=== PATIENT | female | born 1980 | race Caucasian/White ===

== ENCOUNTER 2016-09-08 07:12 | Emergency (ER) | payer OTHER, MEDICAID ==
[2016-09-08 07:30] VITALS: BP 114/74
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
== END 2016-09-08 10:14 | disposition home or self-care (01) ==
LOC: JP.ED 07:12
DX: T74.21XA Adult sexual abuse, confirmed, initial encounter (principal); F17.210 Nicotine dependence, cigarettes, uncomplicated; Z98.890 Other specified postprocedural states; Z90.89 Acquired absence of other organs; Z79.899 Other long term (current) drug therapy; Z88.1 Allergy status to other antibiotic agents
CPT/HCPCS: 99285

== ENCOUNTER 2016-10-19 06:16 | Day surgery (SDC) | payer MEDICAID ==
[2016-10-19] MEDS ORDERED: Lactated Ringers 1,000 ML IV SCH (07:00)
[2016-10-19] MEDS ORDERED: Lidocaine 1% with EPINEPHrine 1:100,000 50 ML MDV ONE (07:10)
[2016-10-19] MEDS ORDERED: Bupivacaine 0.5% 50 ML MDV ONE (07:10)
[2016-10-19] MEDS ORDERED: fentaNYL 250 MCG/5 ML SDV ONE (07:15)
[2016-10-19] MEDS ORDERED: Neostigmine Methylsulfate 1 MG/ML 5 ML Syringe ONE (07:15)
[2016-10-19] MEDS ORDERED: Succinylcholine/Normal Saline 200 MG/10 ML Syringe ONE (07:15)
[2016-10-19] MEDS ORDERED: Rocuronium 50 MG/5 ML Vial ONE (07:15)
[2016-10-19] MEDS ORDERED: Propofol 200 MG/20 ML SDV ONE (07:15)
[2016-10-19] MEDS ORDERED: Dexamethasone 4 MG/ML SDV ONE (07:15)
[2016-10-19] MEDS ORDERED: Ondansetron 4 MG/2 ML SDV ONE (07:15)
[2016-10-19] MEDS ORDERED: Levofloxacin/Dextrose 5%-Water 500 MG in Premix Bag 1 BAG IV ONE (07:30)
[2016-10-19] MEDS ORDERED: metroNIDAZOLE/Normal Saline 500 MG in Premix Bag 1 BAG IV ONE (07:36)
[2016-10-19] MEDS ORDERED: Polyethylene Glycol 3350 Powder 17 GM Packet PO PRN (07:50)
[2016-10-19] MEDS ORDERED: Docusate Sodium 100 MG Cap PO PRN (07:50)
[2016-10-19] MEDS ORDERED: Bisacodyl 5 MG Tab PO PRN (07:50)
[2016-10-19] MEDS ORDERED: Benzocaine/Cetylpyridinium/Menthol Lozenge MUCMEM PRN (07:50)
[2016-10-19] MEDS ORDERED: Acetaminophen/HYDROcodone 325-10 MG Tab PO PRN (07:50)
[2016-10-19] MEDS ORDERED: Zolpidem 5 MG Tab PO PRN (07:50)
[2016-10-19] MEDS ORDERED: Sodium Chloride 0.9% 1,000 ML IV SCH (08:00)
[2016-10-19] MEDS ORDERED: Ondansetron 4 MG/2 ML SDV IVPUSH PRN (13:05)
[2016-10-19] MEDS ORDERED: Ketorolac 60 MG/2 ML SDV ONE (13:11)
[2016-10-19] MEDS ORDERED: Scopolamine 1.5 MG Transdermal Patch TRDERM PRN (13:42)
[2016-10-19] MEDS: risperiDONE 1 MG Tab PO SCH ×2 (17:03→21:30)
[2016-10-19] MEDS ORDERED: Mirtazapine 15 MG Tab PO SCH (21:00)
--- NOTE | 2016-10-19 21:21 | CONS ---
DATE OF SERVICE: 10/19/2016 REFERRING PHYSICIAN: CONSULTING PHYSICIAN: Caio Tang MD REASON FOR CONSULTATION: Abdominal pain. HISTORY OF PRESENT ILLNESS: This is a 36-year-old female with a 3-day history of worsening abdominal pain. There is associated some nausea. No vomiting, shortness of breath, or chest pain. This is in the right upper quadrant. The patient is having normal bowel movements. PAST MEDICAL HISTORY: PTSD, schizoaffective disorder, asthma, depression, smoking history. ALLERGIES: AMOXICILLIN, PENICILLIN, DIPHENHYDRAMINE, SUDAFED, ZITHROMAX, ENVIRONMENTAL. SOCIAL HISTORY: She lives in a jail. She is a smoker. REVIEW OF SYSTEMS: GENERAL: Stable for her condition. HEENT: No symptoms. CARDIOVASCULAR: No history of myocardial infarction. RESPIRATORY: No shortness of breath. PSYCH: Stable. NEUROLOGICAL: No symptoms. The remainder review of systems reviewed and is negative. PHYSICAL EXAMINATION: VITAL SIGNS: Stable. GENERAL: The patient is appropriate for her condition. HEENT: Pupils equal, round, and reactive to light. NECK: Supple, nontender. CARDIOVASCULAR: Regular rate. RESPIRATORY: Lungs clear to consultation bilaterally. ABDOMEN: Bowel sounds are positive. Pain with palpation right upper quadrant. EXTREMITIES: Full range of motion. Strength 5/5. LABORATORY DATA: White blood cell count is 13.7, hemoglobin 15.3. Comprehensive metabolic panel is normal. IMAGING DATA: I did review the ultrasound,which shows cholelithiasis and cholecystitis. PLAN: The patient will be taken to the operating room for laparoscopic cholecystectomy. We discussed risks, benefits, alternatives, and limitations, including, but not limited to infection, bleeding, and perforation of the intestinal structures. We also discussed common bile duct injuries and other risks including cystic duct leaks and bleeding liver bed. The patient understands these risks and wishes to proceed. NATHANIEL Judd /[id number]
[2016-10-20 07:20] VITALS: BP 113/63
[2016-10-20] MEDS ORDERED: Ondansetron 4 MG Tab.DIS PO PRN (07:51)
[2016-10-20] MEDS: risperiDONE 1 MG Tab PO SCH (08:48)
--- NOTE | 2016-10-20 09:58 | OR ---
DATE OF PROCEDURE: 10/19/2016 PROCEDURE: Laparoscopic cholecystectomy. PREOPERATIVE DIAGNOSIS: Cholelithiasis with cholecystitis, acute and chronic. POSTOPERATIVE DIAGNOSIS: Cholelithiasis with cholecystitis, acute and chronic. COMPLICATIONS: None. 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 ANESTHESIA: General/local. INDICATIONS: This is a pleasant 36-year-old female with right upper quadrant abdominal pain and subsequently diagnosed. A diagnosis was verified by ultrasound and was noted to have cholelithiasis with cholecystitis. Risks, benefits, alternatives, limitations including, but not limited to infection, bleeding, and common bile duct injury, along with injury to abdominal structures such as blood vessels, intestines, and others were explained to the patient, and she wished to proceed. PROCEDURE IN DETAIL: The patient was placed in supine position. A supraumbilical curvilinear incision was made. A Veress needle was used and a drop test was performed without abnormality. The abdomen was subsequently insufflated. This was followed by an Optiview trocar. An additional 10 mm and two 5 mm ports were entered under direct visualization. The gallbladder was retracted cephalad. The infundibulum was retracted inferolaterally. Using blunt dissection, a "clear view" of the gallbladder was performed with a single pulsatile structure in the gallbladder and a single nonpulsatile structure in the gallbladder. The duct and its associated artery were subsequently clipped x3, and then transected. The remaining 1/3rd of the gallbladder was removed off the gallbladder bed without abnormality. Minimal bleeding was controlled by electrocautery. The gallbladder was delivered via bag through the upper port. A muscle spreading technique was also used to facilitate gallbladder extraction. The gallbladder fossa and associated clipped structures were then re-evaluated. There was no bleeding. No bile leak. No other abnormalities. Approximately 500 mL of fluid was used to irrigate this area and subsequently removed. The air was removed. The wound was closed with 3-0 Vicryl and 4-0 Vicryl interrupted in running fashion after being thoroughly irrigated and anesthetized with lidocaine, and Dermabond was applied. The patient tolerated the procedure well. Caio Tang MD /[id number]
--- NOTE | 2016-10-20 10:29 | PN ---
DATE OF SERVICE: 10/20/2016 SUBJECTIVE: The patient is doing well today. Nausea has abated. No vomiting, shortness of breath, or chest pain. OBJECTIVE: VITAL SIGNS: Stable. CARDIOVASCULAR: Regular rhythm and rate. RESPIRATORY: Lungs are clear to auscultation bilaterally. ABDOMEN: Bowel sounds are positive. Incisions are healing well. ASSESSMENT: Status post laparoscopic cholecystectomy. PLAN: The patient will be discharged today. Please see discharge instructions for further details. Caio Tang MD /[id number]
--- NOTE | 2016-10-20 10:31 | DISCH ---
DISCHARGE DIAGNOSIS: Status post laparoscopic cholecystectomy. ADDITIONAL DIAGNOSIS: Please see History and Physical. HOSPITAL COURSE: This is a pleasant 36-year-old female, who underwent a laparoscopic cholecystectomy for cholecystitis/cholelithiasis. The patient recovered from surgery well. She remained overnight due to nausea which is completely gone at this point. Laboratory results are nominal. There is no evidence of bilirubin elevation. FOLLOWUP: Follow up with Surgery in 7 to 14 days. ACTIVITY: No lifting 30 pounds x30 days. DISCHARGE MEDICATIONS: Please see MAR, but include oxycodone for pain and Zofran for potential nausea. COMPLICATIONS: During this hospitalization are none. Additional physician referrals during this hospitalization, none.
== END 2016-10-20 09:27 | disposition home or self-care (01) ==
LOC: JP.SDS 06:16 → JP.2SS 09:55 → JP.SDS 10-20 09:27
PROVIDERS: ATTEND Surgery
DX: K80.10 Calculus of gallbladder with chronic cholecystitis without obstruction (principal); J45.909 Unspecified asthma, uncomplicated; F32.9 Major depressive disorder, single episode, unspecified; Z88.0 Allergy status to penicillin; Z88.1 Allergy status to other antibiotic agents; Z88.8 Allergy status to other drugs, medicaments and biological substances; Z91.09 Other allergy status, other than to drugs and biological substances; Z79.899 Other long term (current) drug therapy; F17.200 Nicotine dependence, unspecified, uncomplicated
CPT/HCPCS: 36415; 47562; 80053; 85025; A9270; J1100; J1885; J1956; J2405; J2704; J3010; J7040; J7120; 88304

== ENCOUNTER 2016-11-05 19:35 | Emergency (ER) | payer MEDICAID ==
[2016-11-05 19:50] VITALS: BP 110/66
[2016-11-05] MEDS ORDERED: Bacitracin Oint 1 GM U/D Packet TOP ONE (20:12)
--- NOTE | 2016-11-05 20:15 | EDM.PDOC ---
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 Is tender today with redness. Pt unsure of last tetanus. Onset: Sudden Onset Date: 11/04/16 Location: Reports: Upper Extremity, Left Quality: Reports: Ache Severity: Mild Improves with: Reports: None Worsens with: Reports: None Context: Reports: Activity Associated Symptoms: Reports: No Other Symptoms - Related Data Allergies Allergy/AdvReac Type Severity Reaction Status Date / Time amoxicillin Allergy Severe Difficulty Verified 11/05/16 19:52 Breathing Penicillins Allergy Severe Difficulty Verified 11/05/16 19:52 Breathing azithromycin [From Zithromax] Allergy Hives Verified 11/05/16 19:52 diphenhydramine HCl Allergy Hives Verified 11/05/16 19:52 [From Benadryl] pseudoephedrine Allergy Cannot Verified 11/05/16 19:52 [From Sudafed] Remember environmental Allergy Itching Uncoded 11/05/16 19:52 Home Meds: Home Meds risperiDONE 1 mg PO BID 09/08/16 [History] Albuterol [IJD: Albuterol HFA] 2 puff INH Q4H PRN 10/18/16 [History] Albuterol [Proventil Neb Soln] 3 ml NEB Q6H PRN 10/18/16 [History] Ibuprofen [Motrin] 800 mg PO Q8H PRN 10/18/16 [History] Mirtazapine [Remeron] 15 mg PO BEDTIME 10/18/16 [History] Ondansetron [Zofran ODT] 4 mg PO Q4H PRN #30 tab.dis 10/20/16 [Rx] oxyCODONE 5 mg PO Q4H PRN #30 tablet 10/20/16 [Rx] Past Medical History HEENT History: Reports: Impaired Vision Other HEENT History: HEADACHE Respiratory History: Reports: Asthma Gastrointestinal History: Reports: Cholelithiasis Genitourinary History: Reports: Renal Calculus 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: Musculoskeletal History: Reports: Fracture Neurological History: Reports: Concussion, Headaches, Chronic Psychiatric History: Reports: Addiction, Anxiety, Depression, Panic Attack, PTSD Oncologic (Cancer) History: Reports: Cervix - Past Surgical History HEENT Surgical History: Reports: Adenoidectomy, Tonsillectomy Female Surgical History: Reports: Tubal Ligation Neurological Surgical History: Reports: Scoliosis Social & Family History - Tobacco Use Smoking Status *Q: Current Every Day Smoker Years of Tobacco use: 20 Packs/Tins Daily: 0.5 Used Tobacco, but Quit: No Month Tobacco Last Used: MARCH Second Hand Smoke Exposure: Yes - Caffeine Use Caffeine Use: Reports: Soda - Alcohol Use Days Per Week of Alcohol Use: 0 - Recreational Drug Use Recreational Drug Use: No Drug Use in Last 12 Months: No Recreational Drug Type: Reports: Marijuana/Hashish Recreational Drug Use Frequency: Not Used In Over 6 Months Review of Systems - Review of Systems Review Of Systems: See Below Constitutional: Reports: No Symptoms Ears: Reports: No Symptoms Nose: Reports: No Symptoms Mouth/Throat: Reports: No Symptoms Respiratory: Reports: No Symptoms Cardiovascular: Reports: No Symptoms Musculoskeletal: Reports: Hand Pain (left index finger) Skin: Reports: Change in Color (left index finger tip red and swollen) ED EXAM, GENERAL - Physical Exam Exam: See Below Exam Limited By: No Limitations General Appearance: Alert, WD/WN, No Apparent Distress Respiratory/Chest: No Respiratory Distress, Lungs Clear, Normal Breath Sounds, No Accessory Muscle Use, Chest Non-Tender Cardiovascular: Normal Peripheral Pulses, Regular Rate, Rhythm, No Edema, No Gallop, No JVD, No Murmur, No Rub Extremities: Redness (left index finger near the nailbed with redness, mild swelling and tenderness. No obvious foreign body palpated.) Neurological: Alert, Oriented, CN II-XII Intact, Normal Cognition, Normal Gait, Normal Reflexes, No Motor/Sensory Deficits Skin Exam: Other Lymphatic: No Adenopathy Course - Vital Signs Last Recorded V/S: Last Vital Signs Temp 97.6 F 11/05/16 19:49 Pulse 86 11/05/16 19:49 Resp 16 11/05/16 19:49 BP 110/66 11/05/16 19:49 Pulse Ox 92 L 11/05/16 19:49 - Orders/Labs/Meds Meds: Medications Discontinued Medications Generic Name Dose Route Start Last Admin Trade Name Darin PRN Reason Stop Dose Admin Bacitracin 1 dose 11/05/16 20:12 Bacitracin Oint 1 Gm TOP 11/05/16 20:13 ONETIME ONE Departure - Departure Time of Disposition: 20:17 Disposition: Home, Self-Care 01 Condition: good Clinical Impression: Cellulitis of left index finger - Discharge Information Referrals: PCP,None [Primary Care Provider] - Forms: ED Department Discharge Additional Instructions: Hand soaked in Hibiclens. Dressed with bacitracin and bandaide. Pt is to soak daily in Epsom salt. Rx for Cephalexin 500mg three times a day for 7 days given. Followup if worsening. Tetanus status addressed. Current as of 2014. - Problem List Review Problem List Initiated/Reviewed/Updated: Yes
== END 2016-11-05 20:44 | disposition home or self-care (01) ==
LOC: JP.ED 19:35
DX: L03.012 Cellulitis of left finger (principal); J45.909 Unspecified asthma, uncomplicated; F41.9 Anxiety disorder, unspecified; F17.210 Nicotine dependence, cigarettes, uncomplicated; F32.9 Major depressive disorder, single episode, unspecified; Z98.890 Other specified postprocedural states; Z98.51 Tubal ligation status; Z79.899 Other long term (current) drug therapy; Z88.1 Allergy status to other antibiotic agents; Z88.0 Allergy status to penicillin; Z88.8 Allergy status to other drugs, medicaments and biological substances
CPT/HCPCS: 99283

== ENCOUNTER 2017-01-17 11:54 | Emergency (ER) | payer MEDICAID, OTHER ==
--- NOTE | 2017-01-17 12:26 | EDM.PDOC ---
ED HPI GENERAL MEDICAL PROBLEM - General Chief Complaint: Chest Pain Stated Complaint: CHEST PAIN/MIGRAINE Time Seen by Provider: 01/17/17 12:21 Source of Information: Reports: Patient, Family History Limitations: Reports: No Limitations - History of Present Illness INITIAL COMMENTS - FREE TEXT/NARRATIVE: Wakes up with chest pain over left chest each day. Lasts 20-60 minutes. Seems to resolve on its own. Does smoke x 20 years. Family stress. No new medications. Denies shortness of breath with chest pain. Feels like"little needles". Pt does drink a lot of caffeine and energy drinks regularly. Onset: Today Onset Date: 01/17/17 Onset Time: 09:30 Duration: Hour(s):, Resolved Prior to Arrival Location: Reports: Chest Quality: Reports: Stabbing Severity: Mild Improves with: Reports: None Worsens with: Reports: None Associated Symptoms: Reports: No Other Symptoms, Chest Pain Head Pain Score (Numeric/FACES): 8 - Related Data Allergies Allergy/AdvReac Type Severity Reaction Status Date / Time amoxicillin Allergy Severe Difficulty Verified 01/17/17 12:19 Breathing Penicillins Allergy Severe Difficulty Verified 01/17/17 12:19 Breathing azithromycin [From Zithromax] Allergy Hives Verified 01/17/17 12:19 diphenhydramine HCl Allergy Hives Verified 01/17/17 12:19 [From Benadryl] pseudoephedrine Allergy Cannot Verified 01/17/17 12:19 [From Sudafed] Remember environmental Allergy Itching Uncoded 01/17/17 12:19 Home Meds: Home Meds risperiDONE 1 mg PO BID 09/08/16 [History] Albuterol [IJD: Albuterol HFA] 2 puff INH Q4H PRN 10/18/16 [History] Albuterol [Proventil Neb Soln] 3 ml NEB Q6H PRN 10/18/16 [History] Ibuprofen [Motrin] 800 mg PO Q8H PRN 10/18/16 [History] Mirtazapine [Remeron] 15 mg PO BEDTIME 10/18/16 [History] Ondansetron [Zofran ODT] 4 mg PO Q4H PRN #30 tab.dis 10/20/16 [Rx] oxyCODONE 5 mg PO Q4H PRN #30 tablet 10/20/16 [Rx] Past Medical History HEENT History: Reports: Impaired Vision Other HEENT History: HEADACHE Respiratory History: Reports: Asthma Gastrointestinal History: Reports: Cholelithiasis Genitourinary History: Reports: Renal Calculus 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: Musculoskeletal History: Reports: Fracture Neurological History: Reports: Concussion, Headaches, Chronic Psychiatric History: Reports: Addiction, Anxiety, Depression, Panic Attack, PTSD Oncologic (Cancer) History: Reports: Cervix - Past Surgical History HEENT Surgical History: Reports: Adenoidectomy, Tonsillectomy Female Surgical History: Reports: Tubal Ligation Neurological Surgical History: Reports: Scoliosis Social & Family History - Tobacco Use Smoking Status *Q: Current Every Day Smoker Years of Tobacco use: 20 Packs/Tins Daily: 0.5 Used Tobacco, but Quit: No Month Tobacco Last Used: MARCH Second Hand Smoke Exposure: Yes - Caffeine Use Caffeine Use: Reports: Soda - Alcohol Use Days Per Week of Alcohol Use: 0 - Recreational Drug Use Recreational Drug Use: No Drug Use in Last 12 Months: No Recreational Drug Type: Reports: Marijuana/Hashish Recreational Drug Use Frequency: Not Used In Over 6 Months ED ROS GENERAL - Review of Systems Review Of Systems: See Below Constitutional: Reports: No Symptoms HEENT: Reports: No Symptoms Respiratory: Reports: No Symptoms Cardiovascular: Reports: Chest Pain Endocrine: Reports: No Symptoms GI/Abdominal: Reports: No Symptoms : Reports: No Symptoms Musculoskeletal: Reports: No Symptoms Skin: Reports: No Symptoms ED EXAM, GENERAL - Physical Exam Exam: See Below Exam Limited By: No Limitations General Appearance: Alert, WD/WN, No Apparent Distress Ears: Normal External Exam, Normal Canal, Hearing Grossly Normal, Normal TMs Nose: Normal Inspection, Normal Mucosa, No Blood Throat/Mouth: Normal Inspection, Normal Lips, Normal Teeth, Normal Gums, Normal Oropharynx, Normal Voice, No Airway Compromise Head: Atraumatic, Normocephalic Neck: Normal Inspection, Supple, Non-Tender, Full Range of Motion Respiratory/Chest: No Respiratory Distress, Lungs Clear, Normal Breath Sounds, No Accessory Muscle Use, Chest Non-Tender Cardiovascular: Normal Peripheral Pulses, Regular Rate, Rhythm, No Edema, No Gallop, No JVD, No Murmur, No Rub GI/Abdominal: Normal Bowel Sounds, Soft, Non-Tender, No Organomegaly, No Distention, No Abnormal Bruit, No Mass Back Exam: Normal Inspection, Full Range of Motion, NT Extremities: Normal Inspection, Normal Range of Motion, Non-Tender, Normal Capillary Refill, No Pedal Edema Course - Vital Signs Last Recorded V/S: Last Vital Signs Temp 98.6 F 01/17/17 12:09 Pulse 67 01/17/17 12:09 Resp 15 01/17/17 12:09 BP 116/68 01/17/17 12:09 Pulse Ox 93 L 01/17/17 12:09 - Orders/Labs/Meds Orders: Active Orders 24 hr Category Date Time Status EKG Documentation Completion [RC] ASDIRECTED Care 01/17/17 12:17 Active EKG 12 Lead [EK] Routine Ther 01/17/17 12:17 Ordered Labs: Laboratory Tests 01/17/17 01/17/17 Range/Units 12:49 12:49 WBC 8.4 (4.5-11.0) K/uL RBC 5.30 (3.30-5.50) M/uL Hgb 16.5 H (12.0-15.0) g/dL Hct 52.3 H (36.0-48.0) % MCV 99 H (80-98) fL MCH 31 (27-31) pg MCHC 32 (32-36) % Plt Count 295 (150-400) K/uL Neut % (Auto) 58 (36-66) % Lymph % (Auto) 29 (24-44) % [place] % (Auto) 10 H (2-6) % Eos % (Auto) 3 (2-4) % Baso % (Auto) 1 (0-1) % Sodium 141 (140-148) mmol/L Potassium 4.6 (3.6-5.2) mmol/L Chloride 107 (100-108) mmol/L Carbon Dioxide 30 (21-32) mmol/L Anion Gap 3.9 L (5.0-14.0) mmol/L BUN 9 (7-18) mg/dL Creatinine 0.8 (0.6-1.0) mg/dL Est Cr Clr Drug Dosing 110.75 mL/min Estimated GFR (MDRD) > 60 (>60) Glucose 82 (74-106) mg/dL Calcium 8.6 (8.5-10.1) mg/dL Total Bilirubin 0.3 (0.2-1.0) mg/dL AST 25 (15-37) U/L ALT 35 (12-78) U/L Alkaline Phosphatase 91 (46-116) U/L Troponin I < 0.017 (0.000-0.056) ng/mL Total Protein 7.2 (6.4-8.2) g/dL Albumin 3.3 L (3.4-5.0) g/dL Globulin 3.9 H (2.3-3.5) g/dL Albumin/Globulin Ratio 0.9 L (1.2-2.2) Departure - Departure Time of Disposition: 13:18 Disposition: Home, Self-Care 01 Condition: Good Clinical Impression: GERD (gastroesophageal reflux disease) Qualifiers: Esophagitis presence: without esophagitis Qualified Code(s): K21.9 - Gastro- esophageal reflux disease without esophagitis Forms: ED Department Discharge Additional Instructions: Pt to begin Omeprazole 20mg daily. Discussed smoking cessation. Stressed the need to reduce energy drink and caffeine intake. Discussed triggers for migraine and stress reduction techniques. To followup in 1 month with primary care to evaluate new meds. - Problem List & Annotations (1) GERD (gastroesophageal reflux disease) SNOMED Code(s): 821982710 Code(s): K21.9 - GASTRO-ESOPHAGEAL REFLUX DISEASE WITHOUT ESOPHAGITIS Status: Acute Priority: Medium Current Visit: Yes Qualifiers: Esophagitis presence: without esophagitis Qualified Code(s): K21.9 - Gastro -esophageal reflux disease without esophagitis - My Orders Last 24 Hours: My Active Orders 01/17/17 12:17 EKG Documentation Completion [RC] ASDIRECTED EKG 12 Lead [EK] Routine - Assessment/Plan Last 24 Hours: My Active Orders 01/17/17 12:17 EKG Documentation Completion [RC] ASDIRECTED EKG 12 Lead [EK] Routine
[2017-01-17 13:45] VITALS: BP 105/67
== END 2017-01-17 13:46 | disposition home or self-care (01) ==
LOC: JP.ED 11:54
DX: K21.9 Gastro-esophageal reflux disease without esophagitis (principal); J45.909 Unspecified asthma, uncomplicated; F41.0 Panic disorder [episodic paroxysmal anxiety]; F32.9 Major depressive disorder, single episode, unspecified; F17.210 Nicotine dependence, cigarettes, uncomplicated; Z98.51 Tubal ligation status; Z98.890 Other specified postprocedural states; Z87.442 Personal history of urinary calculi; Z85.41 Personal history of malignant neoplasm of cervix uteri; Z79.899 Other long term (current) drug therapy; Z88.0 Allergy status to penicillin; Z88.1 Allergy status to other antibiotic agents; Z88.8 Allergy status to other drugs, medicaments and biological substances; Z91.048 Other nonmedicinal substance allergy status
CPT/HCPCS: 36415; 80053; 84484; 85025; 93005; 99285

== ENCOUNTER 2017-03-31 18:12 | Emergency (ER) | payer MEDICAID | END 2017-03-31 18:30 | disposition left against medical advice (07) | LOC: JP.ED 18:12 | DX: Z53.21 Procedure and treatment not carried out due to patient leaving prior to being seen by health care provider (principal) ==

== ENCOUNTER 2017-04-10 08:43 | Emergency (ER) | payer MEDICAID ==
[2017-04-10 08:57] VITALS: BP 122/84
[2017-04-10] MEDS ORDERED: Ketorolac 60 MG/2 ML SDV IM ONE (09:14)
--- NOTE | 2017-04-10 09:18 | EDM.PDOC ---
ED HPI GENERAL MEDICAL PROBLEM - General Chief Complaint: Lower Extremity Injury/Pain Stated Complaint: FELL ON KNEES (KNEE PAIN) Time Seen by Provider: 04/10/17 09:11 Source of Information: Reports: Patient, RN Notes Reviewed History Limitations: Reports: No Limitations - History of Present Illness INITIAL COMMENTS - FREE TEXT/NARRATIVE: 36-year-old female presents emergency department today with complaint of bilateral knee pain, she slipped and fell on the ice last night majority of the pain is coming from the right knee she does have superficial abrasions on the right knee she was able to ambulate into the emergency department, no other complaints no loss of consciousness Bilateral Knee Pain Score (Numeric/FACES): 9 - Related Data Allergies Allergy/AdvReac Type Severity Reaction Status Date / Time amoxicillin Allergy Severe Difficulty Verified 04/10/17 08:57 Breathing Penicillins Allergy Severe Difficulty Verified 04/10/17 08:57 Breathing azithromycin [From Zithromax] Allergy Hives Verified 04/10/17 08:57 diphenhydramine HCl Allergy Hives Verified 04/10/17 08:57 [From Benadryl] pseudoephedrine Allergy Cannot Verified 04/10/17 08:57 [From Sudafed] Remember environmental Allergy Itching Uncoded 04/10/17 08:57 Home Meds: Home Meds risperiDONE 1 mg PO BEDTIME 09/08/16 [History] Albuterol [IJD: Albuterol HFA] 2 puff INH Q4H PRN 10/18/16 [History] Albuterol [Proventil Neb Soln] 3 ml NEB Q6H PRN 10/18/16 [History] Ibuprofen [Motrin] 800 mg PO Q8H PRN 10/18/16 [History] FLUoxetine [PROzac] 20 mg PO DAILY 04/10/17 [History] Lisdexamfetamine [Vyvanse] 20 mg PO DAILY 04/10/17 [History] Mometasone/Formoterol [Dulera 200-5 MCG] 2 puff IH BID 04/10/17 [History] traZODone 50 mg PO BEDTIME 04/10/17 [History] Past Medical History HEENT History: Reports: Impaired Vision Other HEENT History: HEADACHE Respiratory History: Reports: Asthma Gastrointestinal History: Reports: Cholelithiasis Genitourinary History: Reports: Renal Calculus 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: Musculoskeletal History: Reports: Fracture Neurological History: Reports: Concussion, Headaches, Chronic Psychiatric History: Reports: Addiction, Anxiety, Depression, Panic Attack, PTSD Oncologic (Cancer) History: Reports: Cervix - Past Surgical History HEENT Surgical History: Reports: Adenoidectomy, Tonsillectomy Female Surgical History: Reports: Tubal Ligation Neurological Surgical History: Reports: Scoliosis Social & Family History - Tobacco Use Smoking Status *Q: Current Every Day Smoker Years of Tobacco use: 21 Packs/Tins Daily: 0.5 Used Tobacco, but Quit: No Month Tobacco Last Used: MARCH Second Hand Smoke Exposure: Yes - Caffeine Use Caffeine Use: Reports: Soda - Alcohol Use Days Per Week of Alcohol Use: 0 - Recreational Drug Use Recreational Drug Use: No Drug Use in Last 12 Months: No Recreational Drug Type: Reports: Marijuana/Hashish Recreational Drug Use Frequency: Not Used In Over 6 Months Review of Systems - Review of Systems Review Of Systems: See Below Musculoskeletal: Reports: Joint Pain (Knee pain) Skin: Reports: Bruising, Erythema ED EXAM, GENERAL - Physical Exam Exam: See Below Free Text/Narrative:: Examination of the knees small amount of edema is noted on the left knee there is some bruising and edema noted on the right knee abrasions over the patella I can't appreciate any specific point tenderness to exam on the left knee she is tender to palpation along the anterior joint line and as well as over the patella will not tolerate an exam on the right knee, no tenderness at the ankles no tenderness at the hips Exam Limited By: No Limitations General Appearance: Alert, WD/WN, No Apparent Distress Course - Vital Signs Last Recorded V/S: Last Vital Signs Temp 98.4 F 04/10/17 08:54 Pulse 98 04/10/17 08:54 Resp 16 04/10/17 08:54 BP 122/84 04/10/17 08:54 Pulse Ox 97 04/10/17 08:54 - Orders/Labs/Meds Orders: Active Orders 24 hr Category Date Time Status Knee 3V Bi [CR] Stat Exams 04/10/17 09:14 Taken Meds: Medications Discontinued Medications Generic Name Dose Route Start Last Admin Trade Name Freq PRN Reason Stop Dose Admin Ketorolac Tromethamine 60 mg 04/10/17 09:14 04/10/17 09:21 Toradol IM 04/10/17 09:15 60 mg ONETIME ONE Administration Departure - Departure Time of Disposition: 09:46 Disposition: Home, Self-Care 01 Condition: Good Clinical Impression: Contusion of bone Knee pain Qualifiers: Chronicity: acute Laterality: bilateral Qualified Code(s): M25.561 - Pain in right knee; M25.562 - Pain in left knee; M25.562 - Pain in left knee - Discharge Information Referrals: Juliano Longoria CONTRACTING ENGINEER [Primary Care Provider] - Forms: ED Department Discharge Additional Instructions: Use ibuprofen for baseline pain control, use hydrocodone for breakthrough pain, Please followup with your primary care provider in 3-5 days if not better, please call return to the emergency department with worsening of symptoms. - My Orders Last 24 Hours: My Active Orders 04/10/17 09:14 Knee 3V Bi [CR] Stat - Assessment/Plan Last 24 Hours: My Active Orders 04/10/17 09:14 Knee 3V Bi [CR] Stat Plan: Assessment Acuity = acute Site and laterality = bilateral knee contusions Etiology = secondary to fall Manifestations = none Location of injury = Home Lab values = bilateral knee x-rays I did review films myself I cannot appreciate any acute process, the official read from radiology is pending Plan I did review films with her she had good relief from the Toradol injection plan is she is going to continue to use ibuprofen for baseline pain control and hydrocodone for breakthrough pain she will follow-up with primary care in 3-5 days if no improvement, prescription written for hydrocodone 5/325 one tab by mouth 3 times a day when necessary total #6 Patient was in agreement with the plan all questions were answered, they were instructed to return to the emergency department or call for worsening symptoms. This note was dictated using [employer] recognition software please call with any questions.
--- NOTE | 2017-04-11 09:05 | CR ---
Knee 3V Bi INDICATION: pain, trauma FINDINGS: Benign sclerosis in the proximal left tibia. Left and right knees otherwise negative.
== END 2017-04-10 09:56 | disposition home or self-care (01) ==
LOC: JP.ED 08:43
DX: S80.02XA Contusion of left knee, initial encounter (principal); S80.01XA Contusion of right knee, initial encounter; Z88.1 Allergy status to other antibiotic agents; Z88.8 Allergy status to other drugs, medicaments and biological substances; Z88.0 Allergy status to penicillin; W00.0XXA Fall on same level due to ice and snow, initial encounter; F17.210 Nicotine dependence, cigarettes, uncomplicated
CPT/HCPCS: 73562; 96374; 99283; J1885

== ENCOUNTER 2018-03-01 12:34 | Emergency (ER) | payer MEDICAID | END 2018-03-01 13:46 | disposition left against medical advice (07) | LOC: JP.ED 12:34 | DX: Z53.21 Procedure and treatment not carried out due to patient leaving prior to being seen by health care provider (principal) ==

== ENCOUNTER 2018-09-20 18:24 | Emergency (ER) | payer MEDICAID ==
[2018-09-20 18:47] VITALS: BP 119/80
--- NOTE | 2018-09-20 19:31 | EDM.PDOC ---
ED HPI GENERAL MEDICAL PROBLEM - General Chief Complaint: Headache Stated Complaint: hit head Time Seen by Provider: 09/20/18 19:23 Source of Information: Reports: Patient, Family, RN Notes Reviewed History Limitations: Reports: No Limitations - History of Present Illness INITIAL COMMENTS - FREE TEXT/NARRATIVE: 38-year-old female presents emergency department today following a head injury, this happened about an hour prior she was walking out of a camper hit the side of her head on the right side now is complaining of double and triple vision as well as headache she is not taking anything for the pain Head Pain Score (Numeric/FACES): 9 - Related Data Allergies Allergy/AdvReac Type Severity Reaction Status Date / Time amoxicillin Allergy Severe Difficulty Verified 04/10/17 08:57 Breathing Penicillins Allergy Severe Difficulty Verified 04/10/17 08:57 Breathing azithromycin [From Zithromax] Allergy Hives Verified 04/10/17 08:57 diphenhydramine HCl Allergy Hives Verified 04/10/17 08:57 [From Benadryl] pseudoephedrine Allergy Cannot Verified 04/10/17 08:57 [From Sudafed] Remember environmental Allergy Itching Uncoded 04/10/17 08:57 Home Meds: Home Meds Albuterol [IJD: Albuterol HFA] 2 puff INH Q4H PRN 10/18/16 [History] Ibuprofen [Motrin] 800 mg PO Q8H PRN 10/18/16 [History] Past Medical History HEENT History: Reports: Impaired Vision Respiratory History: Reports: Asthma Gastrointestinal History: Reports: Cholelithiasis Genitourinary History: Reports: Renal Calculus 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: Musculoskeletal History: Reports: Fracture Neurological History: Reports: Concussion, Headaches, Chronic Psychiatric History: Reports: Addiction, Anxiety, Depression, Panic Attack, PTSD Oncologic (Cancer) History: Reports: Cervix - Past Surgical History HEENT Surgical History: Reports: Adenoidectomy, Tonsillectomy Female Surgical History: Reports: Tubal Ligation Neurological Surgical History: Reports: Scoliosis Social & Family History - Tobacco Use Years of Tobacco use: 23 - Caffeine Use Caffeine Use: Reports: Energy Drinks, Soda - Recreational Drug Use Recreational Drug Use: No ED ROS GENERAL - Review of Systems Review Of Systems: See Below Constitutional: Reports: No Symptoms HEENT: Reports: Vision Change Respiratory: Reports: No Symptoms Cardiovascular: Reports: No Symptoms GI/Abdominal: Reports: No Symptoms Neurological: Reports: Headache ED EXAM, HEAD INJURY - Physical Exam Exam: See Below Exam Limited By: No Limitations General Appearance: Alert, Mild Distress Head: Atraumatic, Normocephalic Nexus Criteria: Posterior, Midline Cervical Tenderness. No: Evidence of Intoxication, Altered Level of Consciousness, Focal Neurological Deficit, Painful Distraction Injuries Eyes: Bilateral Eye: EOMI (Will not follow directions), Normal Inspection, PERRL Ears: Normal External Exam, Normal Canal, Hearing Grossly Normal, Normal TMs Nose: Normal Inspection, Normal Mucousa, No Blood Throat/Mouth: Normal Inspection, Normal Lips, Normal Teeth, Normal Gums, Normal Oropharynx, Normal Voice, No Airway Compromise Neck: Normal Inspection, Limited Range of Motion Respiratory: No Respiratory Distress, Lungs Clear, Normal Breath Sounds, No Accessory Muscle Use, Chest Non-Tender Cardiovascular: Regular Rate, Rhythm, No Murmur Course - Vital Signs Last Recorded V/S: Last Vital Signs Temp 95.6 F 09/20/18 18:48 Pulse 111 H 09/20/18 18:48 Resp 16 09/20/18 18:48 BP 119/80 09/20/18 18:48 Pulse Ox 95 09/20/18 18:48 - Orders/Labs/Meds Meds: Medications Discontinued Medications Generic Name Dose Route Start Last Admin Trade Name Darin PRN Reason Stop Dose Admin Ketorolac Tromethamine 60 mg 09/20/18 19:27 09/20/18 19:33 Toradol IM 09/20/18 19:28 60 mg ONETIME ONE Administration Departure - Departure Time of Disposition: 21:24 Disposition: Home, Self-Care 01 Condition: Fair Clinical Impression: Head trauma Qualifiers: Encounter type: initial encounter Qualified Code(s): S09.90XA - Unspecified injury of head, initial encounter - Discharge Information Referrals: Juliano Longoria NP [Primary Care Provider] - Forms: ED Department Discharge Additional Instructions: Use Tylenol or Motrin as needed for pain control, Please followup with your primary care provider in 3-5 days if not better, please call return to the emergency department with worsening of symptoms. - Assessment/Plan Plan: Assessment Acuity = acute Site and laterality = head injury Etiology = secondary to trauma Manifestations = none Location of injury = Home Lab values = CT of the head and neck show no acute fracture or abnormality Plan Vision improved after Toradol injection plan is to use Tylenol or ibuprofen as the pain control follow-up primary care and treated 5 days if no improvement This note was dictated using [employer] voice recognition software please call with any questions on syntax or grammar.
[2018-09-20] MEDS: Ketorolac 60 MG/2 ML SDV IM ONE (19:33)
--- NOTE | 2018-09-20 21:10 | CRLCT ---
INDICATION: Injury. Headaches. Double vision TECHNIQUE: CT head without contrast. COMPARISON: None available FINDINGS: There is motion artifact near the skullbase. The ventricles and sulci are within normal limits. There is no mass effect or midline shift. There is no loss of newton-white differentiation. There is no definite evidence of gross acute intracranial hemorrhage, given the limitations. No acute calvarial fracture is seen. The visualized paranasal sinuses and mastoid air cells are clear. The visualized orbits are within normal limits. IMPRESSION: Motion degraded study. No definite evidence of a gross intracranial hemorrhage, mass effect or loss of newton-white differentiation. If clinically indicated, followup with better sedation and technique. Dictated by Nathan Beltrán MD @ 09/20/2018 9:08:20 PM Please note that all CT scans at this facility use dose modulation, iterative reconstruction, and/or weight-based dosing when appropriate to reduce radiation dose to as low as reasonably achievable. Dictated by: Nathan Beltrán MD @ 09/20/2018 21:08:26 (Electronically Signed)
--- NOTE | 2018-09-20 21:19 | CRLCT ---
INDICATION: Injury TECHNIQUE: CT cervical spine without contrast. COMPARISON: None available FINDINGS: There is mild reversal of the cervical lordosis. The craniocervical and atlantoaxial alignments are near anatomical. There is no evidence of an acute cervical spine fracture. There is no significant precervical soft tissue swelling. IMPRESSION: No evidence of an acute cervical spine fracture. Dictated by Nathan Beltrán MD @ 09/20/2018 9:16:25 PM Please note that all CT scans at this facility use dose modulation, iterative reconstruction, and/or weight-based dosing when appropriate to reduce radiation dose to as low as reasonably achievable. Dictated by: Nathan Beltrán MD @ 09/20/2018 21:17:53 (Electronically Signed)
== END 2018-09-20 21:35 | disposition home or self-care (01) ==
LOC: JP.ED 18:24
DX: S09.90XA Unspecified injury of head, initial encounter (principal); Z98.890 Other specified postprocedural states; Z98.51 Tubal ligation status; Z88.0 Allergy status to penicillin; Z88.1 Allergy status to other antibiotic agents; Z91.09 Other allergy status, other than to drugs and biological substances; W22.8XXA Striking against or struck by other objects, initial encounter
CPT/HCPCS: 70450; 72125; 96372; 99283; J1885